=== PATIENT | female | born 1970 | race African-American/Black ===

== ENCOUNTER 2019-07-28 18:32 | Inpatient (IN) | payer MEDICAID ==
[~2019-07-28] VITALS: Ht 160 cm; Wt 111.5 kg
--- NOTE | 2019-07-28 19:53 | NUR ---
Pt presents to ed c/o rash "all over my body." States rash present for months now. [facility] since . Pt states no relief from rash. "those antibiotics just wont work."
[2019-07-28] MEDS ORDERED: DIPH,PERTUSS(ACELL),TET VAC/PF 0.5 ML IM-VACC ONE ×2 (20:00)
[2019-07-28] MEDS ORDERED: DIPHENHYDRAMINE 50 MG/ML, 1ML ONE (20:26)
[2019-07-28] MEDS ORDERED: methylPREDNISolone SOD SUCC 125 MG/2 ML ONE (20:27)
[2019-07-28] MEDS ORDERED: DIPHENHYDRAMINE 50 MG/ML, 1ML IVPush ONE (20:30)
[2019-07-28] MEDS ORDERED: methylPREDNISolone SOD SUCC 125 MG/2 ML IVPush SCH (20:30)
[2019-07-28 20:43] LABS: ALANINE AMINOTRANSFERASE 23 U/L (12-78); ALBUMIN 3.4 g/dL (3.4-5.0); ANION GAP 5 mmol/L (5-15); CALCIUM 8.3 mg/dL (8.5-10.1); CHLORIDE 105 mmol/L (98-107)
[2019-07-28 20:45] LABS: CREATININE 1.07 mg/dL (0.55-1.02)
[2019-07-28 20:46] LABS: ALKALINE PHOSPHATASE 65 U/L (45-117); BILIRUBIN,TOTAL 0.2 mg/dL (0.2-1.0); TOTAL PROTEIN 7.7 g/dL (6.4-8.2)
[2019-07-28 20:50] LABS: BASOPHILS # (AUTO) 0.04 x10^3/uL (0-0.1); BASOPHILS % (AUTO) 1 % (0-1); EOSINOPHILS # (AUTO) 0.53 x10^3/uL (0-0.4); EOSINOPHILS % (AUTO) 11 % (1-7); LYMPHOCYTES # (AUTO) 1.77 x10^3/uL (1-3.4); LYMPHOCYTES % (AUTO) 36 % (22-44); MD NO; MEAN CORPUSCULAR HEMOGLOBIN 28.3 pg (27.0-34.8); MEAN CORPUSCULAR HGB CONC 32.9 g/dL (32.4-35.8); MEAN CORPUSCULAR VOLUME 86.1 fL (80-100); MEAN PLATELET VOLUME 8.3 fL (7.4-10.4); MONOCYTES # (AUTO) 0.67 x10^3/uL (0.2-0.8); MONOCYTES % (AUTO) 14 % (2-9); NEUTROPHILS # (AUTO) 1.98 x10^3/uL (1.8-6.8); NEUTROPHILS % (AUTO) 40 % (42-75); PLATELET COUNT 305 x10^3/uL (130-400); RED BLOOD COUNT 4.16 x10^6/uL (3.82-5.3); RED CELL DISTRIBUTION WIDTH 20.8 % (9.6-15.2)
--- NOTE | 2019-07-28 21:22 | NUR ---
at bedside for recheck.
--- NOTE | 2019-07-28 21:45 | NUR ---
Pt tbadm. Awaiting adm orders. No immediate needs from pt.
[2019-07-28] MEDS ORDERED: CLINDAMYCIN PMX 900MG/50ML 50 ML ONE (21:46)
[2019-07-28] MEDS ORDERED: MUPIROCIN OINT 2%, 22GM TP SCH (22:00)
[2019-07-28] MEDS ORDERED: MORPHINE SULFATE 4 MG/ML, 1ML IVPush PRN (22:00)
[2019-07-28] MEDS ORDERED: CLINDAMYCIN PMX 900MG/50ML 50 ML IV ONE (22:00)
--- NOTE | 2019-07-28 22:03 | NUR ---
Ordered bactroban from rx. Awaiting med.
[2019-07-28 23:05] VITALS: BP 129/78
[2019-07-29] MEDS ORDERED: ONDANSETRON 2MG/ML, 2ML IVPush PRN
[2019-07-29] MEDS ORDERED: ACETAMINOPHEN 325 MG TABLET PO PRN
[2019-07-29] MEDS ORDERED: LABETALOL 5MG/ML, 20ML IVPush PRN
[2019-07-29] MEDS: HEPARIN 5,000 UNITS/ML, 1ML SQ SCH ×3 (00:35→16:56)
[2019-07-29] MEDS: morphine SULFATE 10 MG/ML, 1ML IVPush PRN ×2 (00:36→08:31)
[2019-07-29 00:37] LABS: C-REACTIVE PROTEIN, QUANT 6.4 mg/dL (0.02-0.49)
[2019-07-29 00:38] LABS: HEMOGLOBIN A1C 5.2 % (4.2-6.3)
[2019-07-29 00:56] LABS: FREE T4 (FREE THYROXINE) 0.84 ng/dL (0.76-1.46)
[2019-07-29 01:40] VITALS: BP 112/70
[2019-07-29 04:46] LABS: BASOPHILS # (AUTO) 0.01 x10^3/uL (0-0.1); BASOPHILS % (AUTO) 0 % (0-1); EOSINOPHILS % (AUTO) 0 % (1-7); LYMPHOCYTES # (AUTO) 0.42 x10^3/uL (1-3.4); LYMPHOCYTES % (AUTO) 9 % (22-44); MD NO; MEAN CORPUSCULAR HEMOGLOBIN 28.3 pg (27.0-34.8); MEAN CORPUSCULAR HGB CONC 32.3 g/dL (32.4-35.8); MEAN CORPUSCULAR VOLUME 87.6 fL (80-100); MONOCYTES # (AUTO) 0.04 x10^3/uL (0.2-0.8); MONOCYTES % (AUTO) 1 % (2-9); NEUTROPHILS # (AUTO) 4.16 x10^3/uL (1.8-6.8); NEUTROPHILS % (AUTO) 90 % (42-75); PLATELET COUNT 290 x10^3/uL (130-400); RED BLOOD COUNT 3.91 x10^6/uL (3.82-5.3); RED CELL DISTRIBUTION WIDTH 20.3 % (9.6-15.2)
[2019-07-29 04:56] LABS: ANION GAP 7 mmol/L (5-15); CALCIUM 8.3 mg/dL (8.5-10.1); CHLORIDE 106 mmol/L (98-107)
[2019-07-29 04:59] LABS: CHOL/HDL RATIO 2.8; CHOLESTEROL, TOTAL 152 mg/dL (140-239); CREATININE 1.13 mg/dL (0.55-1.02); HDL CHOL % 36 % (28-40); HDL CHOLESTEROL (DIRECT) 55 mg/dL (40-60); LDL CHOLESTEROL,CALCULATED 89 mg/dL (54-169); LDL/HDL RATIO 1.6 (0.5-3.0); TRIGLYCERIDES 38 mg/dL (50-200); VLDL CHOLESTEROL 8 mg/dL (0-25)
[2019-07-29] MEDS: DIPHENHYDRAMINE 25 MG CAPSULE PO PRN ×2 (05:16→16:56)
[2019-07-29 07:14] VITALS: BP 117/73
[2019-07-29] MEDS: MUPIROCIN OINT 2%, 22GM TP SCH ×2 (08:00→16:56)
[2019-07-29] MEDS: GABAPENTIN 100 MG CAPSULE PO SCH ×3 (08:30→21:48)
[2019-07-29] MEDS: CLINDAMYCIN PMX 600MG/50ML 50 ML IV SCH ×2 (08:30→16:56)
[2019-07-29] MEDS: KETOROLAC 30 MG/1 ML IV PRN ×2 (10:43→16:56)
[2019-07-29 12:14] VITALS: BP 116/75
[2019-07-29 19:36] VITALS: BP 115/71
[2019-07-30] MEDS: CLINDAMYCIN PMX 600MG/50ML 50 ML IV SCH ×3 (00:43→17:49)
[2019-07-30] MEDS: HEPARIN 5,000 UNITS/ML, 1ML SQ SCH ×3 (00:44→17:49)
[2019-07-30 02:42] VITALS: BP 90/57
[2019-07-30] MEDS: KETOROLAC 30 MG/1 ML IV PRN ×3 (04:04→17:49)
[2019-07-30] MEDS: MUPIROCIN OINT 2%, 22GM TP SCH ×2 (05:03→17:50)
[2019-07-30 08:20] VITALS: BP 116/60
[2019-07-30] MEDS: GABAPENTIN 100 MG CAPSULE PO SCH ×3 (10:43→19:18)
[2019-07-30 12:26] VITALS: BP 99/64
[2019-07-30] MEDS: DIPHENHYDRAMINE 25 MG CAPSULE PO PRN (17:49)
[2019-07-30 19:45] VITALS: BP 108/68
[2019-07-30] MEDS: DIPHENHYDRAMINE/ZINC CRM 2%, 30GM TP PRN (21:55)
[2019-07-31 01:21] VITALS: BP 114/70
[2019-07-31] MEDS: CLINDAMYCIN PMX 600MG/50ML 50 ML IV SCH ×2 (01:52→10:05)
[2019-07-31] MEDS: HEPARIN 5,000 UNITS/ML, 1ML SQ SCH ×2 (01:54→10:05)
[2019-07-31] MEDS: MUPIROCIN OINT 2%, 22GM TP SCH (06:03)
[2019-07-31 06:39] VITALS: BP 127/70
[2019-07-31] MEDS: GABAPENTIN 100 MG CAPSULE PO SCH (08:05)
[2019-07-31] MEDS: DIPHENHYDRAMINE/ZINC CRM 2%, 30GM TP PRN ×2 (08:05→14:30)
[2019-07-31] MEDS: KETOROLAC 30 MG/1 ML IV PRN ×2 (08:05→14:30)
[2019-07-31] MEDS: DIPHENHYDRAMINE 25 MG CAPSULE PO PRN (10:12)
[2019-07-31] MEDS ORDERED: LACTOBACILLUS CHEW TABLET PO SCH (12:00)
[2019-07-31 12:26] VITALS: BP 126/68
[2019-07-31] MEDS ORDERED: GABA-826 PO (15:54)
[2019-07-31] MEDS ORDERED: ACID1TAB7 PO (15:54)
[2019-07-31] MEDS ORDERED: CLIN300C8 PO (15:54)
== END 2019-07-31 18:21 | disposition home or self-care (01) | DRG 603 ==
LOC: ED 20:48 → EDIP 21:56 → 3N 23:02
PROVIDERS: ADMIT Family Medicine; ATTEND Internal Medicine
DX: L03.116 Cellulitis of left lower limb (principal); Z68.41 Body mass index [BMI] 40.0-44.9, adult; E66.01 Morbid (severe) obesity due to excess calories; Z91.040 Latex allergy status; Z88.0 Allergy status to penicillin; Z91.048 Other nonmedicinal substance allergy status; F17.200 Nicotine dependence, unspecified, uncomplicated; L03.115 Cellulitis of right lower limb
CPT/HCPCS: 36415; 80048; 80053; 80061; 83036; 83605; 83880; 84145; 84439; 84443; 85025; 85651; 86038; 86140; 87040; 87389; 90715; 93306; 93970; 96374; 96375; G0378; J1644; J1885; J1200; J2270; J2930; Q0163